=== PATIENT | male | born 1980 | race Hispanic/Latino ===

== ENCOUNTER 2018-05-28 23:40 | Emergency (ER) | payer SELFPAY ==
[2018-05-29 02:27] LABS: Basophils % (Auto) 0.8 % (0.0-1.8); Eosinophils % (Auto) 0.2 % (0.0-4.3); Hematocrit 45.2 % (35.5-45.6); Hemoglobin 15.9 gm/dl (11.8-15.2); Lymphocytes # (Auto) 0.5 K/mm3 (1.2-5.4); Lymphocytes % (Auto) 12.1 % (13.4-35.0); Mean Corpuscular HGB Conc 35 % (32-34); Mean Corpuscular Hemoglobin 33 pg (28-32); Mean Corpuscular Volume 93 fl (84-94); Monocytes # (Auto) 0.7 K/mm3 (0.0-0.8); Monocytes % (Auto) 15.9 % (0.0-7.3); Platelet Count 135 K/mm3 (140-440); Red Blood Count 4.85 M/mm3 (3.65-5.03); Red Cell Distribution Width 14.5 % (13.2-15.2)
[2018-05-29 02:42] LABS: BUN/Creatinine Ratio 21; Blood Urea Nitrogen 17 mg/dL (9-20); Calcium 9.6 mg/dL (8.4-10.2); Hemolysis Index 6
[2018-05-29] MEDS ORDERED: VITAMIN B-1 100 MG, FOLVITE 1 MG, INFUVITE 10 ML, MAGNESIUM SULFATE 2 GM in NACL 0.9% 1... IV ONE (05:15)
[2018-05-29] MEDS ORDERED: ZOFRAN IV ONE (05:15)
--- NOTE | 2018-05-29 05:34 | Emergency Department Report ---
HPI - General Chief Complaint: Psych Time Seen by Provider: 05/29/18 05:08 - [facility] HPI: Anthony 11 The patient is a 38-year-old male presenting with a chief complaint of alcohol abuse. The patient states came to the emergency department seeking detox from alcohol. He states he usually drinks between 10-12 miniature liquors daily. Patient states he last consumed last night. Location: Mental state Duration: [See above] Quality: Alcoholic Severity: Moderately severe Modifying factors: [see above] Context: [see above] Mode of transportation: [not driving] ED Past Medical Hx - Past Medical History Hx Hypertension: Yes Hx Psychiatric Treatment: Yes (Depression) - Surgical History Past Surgical History?: No - Family History Family history: no significant - Social History Smoking Status: Never Smoker Substance Use Type: None (denies illicit drug use), Alcohol (daily) - Medications Home Medications: Home Medications Medication Instructions Recorded Confirmed Last Taken Type QUEtiapine [SEROquel] 25 mg PO DAILY 05/29/18 05/29/18 Unknown History QUEtiapine [SEROquel] 25 mg PO QAM 05/29/18 05/29/18 Unknown History diphenhydrAMINE [Benadryl CAP] 50 mg PO QAM PRN 05/29/18 05/29/18 Unknown History Lisinopril [Zestril] 10 mg PO DAILY #30 tablet 05/31/18 Unknown Rx QUEtiapine [SEROquel] 200 mg PO QHS #30 tablet 05/31/18 Unknown Rx Venlafaxine [Effexor 25mg tab] 25 mg PO BID #60 tablet 05/31/18 Unknown Rx ED Review of Systems ROS: Stated complaint: MH Other details as noted in HPI Constitutional: no symptoms reported Eyes: denies: eye pain ENT: denies: throat pain Respiratory: no symptoms reported Cardiovascular: denies: chest pain Gastrointestinal: nausea, vomiting Genitourinary: denies: dysuria Musculoskeletal: denies: back pain Neurological: denies: headache Physical Exam - Physical Exam Vital Signs: Vital Signs 05/29/18 05/29/18 01:34 04:00 Temperature 98.6 F 98.6 F Pulse Rate 101 H 98 H Respiratory 18 20 Rate Blood Pressure 129/95 Blood Pressure 139/98 [Right] O2 Sat by Pulse 100 97 Oximetry Physical Exam: GENERAL: The patient is well-developed well-nourished male lying on stretcher not appearing to be in acute distress. [] HEENT: Normocephalic. Atraumatic. Extraocular motions are intact. Patient has moist mucous membranes. NECK: Supple. Trachea midline CHEST/LUNGS: Clear to auscultation. There is no respiratory distress noted. HEART/CARDIOVASCULAR: Regular. There is no tachycardia. There is no gallop rub or murmur. ABDOMEN: Abdomen is soft, nontender. Patient has normal bowel sounds. There is no abdominal distention. SKIN: There is no rash. There is no edema. There is no diaphoresis. NEURO: The patient is awake, alert, and oriented. The patient is cooperative. The patient has normal speech MUSCULOSKELETAL: There is no evidence of acute injury. ED Course Vital Signs 05/29/18 05/29/18 01:34 04:00 Temperature 98.6 F 98.6 F Pulse Rate 101 H 98 H Respiratory 18 20 Rate Blood Pressure 129/95 Blood Pressure 139/98 [Right] O2 Sat by Pulse 100 97 Oximetry ED Medical Decision Making - Lab Data Result diagrams: 05/29/18 02:06 05/29/18 02:06 Critical care attestation.: If time is entered above; I have spent that time in minutes in the direct care of this critically ill patient, excluding procedure time. ED Disposition Clinical Impression: Alcohol abuse Disposition: DC-01 TO HOME OR SELFCARE Is pt being admited?: No Does the pt Need Aspirin: No Condition: Stable Instructions: At-Risk Alcohol Use (ED) Prescriptions: Lisinopril [Zestril] 10 mg PO DAILY #30 tablet QUEtiapine [SEROquel] 200 mg PO QHS #30 tablet Venlafaxine [Effexor 25mg tab] 25 mg PO BID #60 tablet Referrals: PRIMARY CARE,MD [Primary Care Provider] - 3-5 Days
[2018-05-29 05:43] LABS: Bilirubin,Direct 0.3 mg/dL (0-0.2)
[2018-05-29] MEDS ORDERED: ATIVAN PO ONE (09:01)
[2018-05-29] MEDS: ZOFRAN IV PRN ×2 (09:01→18:05)
[2018-05-29] MEDS: LIBRIUM PO SCH ×3 (10:04→18:05)
[2018-05-29 22:36] LABS: Bilirubin,Urine NEG (Negative); Blood,Urine SM (Negative); Color,Urine Amber (Yellow); Mucus,Urine 1+ /HPF; WBC,Urine < 1.0 /HPF (0.0-6.0)
[2018-05-29 22:49] LABS: Amphetamine Screen,Urine PRESUMPTIVE NEGATIVE; Cannabinoid Screen,Urine PRESUMPTIVE NEGATIVE; Cocaine Screen,Urine PRESUMPTIVE NEGATIVE; Methadone Screen,Urine PRESUMPTIVE NEGATIVE; Opiate Screen,Urine PRESUMPTIVE NEGATIVE
[2018-05-29 23:02] LABS: Benzodiazepines Screen,Urine PRESUMPTIVE POSITIVE
[2018-05-30] MEDS: LIBRIUM PO SCH ×4 (00:10→18:20)
[2018-05-30] MEDS: ZOFRAN IV PRN ×2 (02:37→16:30)
[2018-05-30] MEDS ORDERED: ATIVAN IV ONE (04:29)
[2018-05-30] MEDS ORDERED: ATIVAN ONE (04:33)
[2018-05-30] MEDS ORDERED: ZESTRIL PO SCH (11:00)
[2018-05-30] MEDS: EFFEXOR PO SCH ×2 (12:30→22:13)
--- NOTE | 2018-05-30 13:20 | Consultation ---
History of Present Illness - Reason for Consult Consult date: 05/30/18 Reason for consult: Initial Psychiatric Emergency - Chief Complaint Chief complaint: " Drinking" - History of Present Psychiatric Illness Patient is a 38-year-old white male who presents to the emergency room with a chief complaint of alcohol abuse. The patient states he came to the emergency department seeking detox from alcohol. Patient has a past psychiatric history of major depressive disorder (2016) generalized anxiety disorder (2016). Today patient presents cooperative but anxious on the assessment. Patient states, "I want to stop drinking so I came here to minimize mild withdrawal symptoms." Patient verbalizes that he drinks 610 drinks of vodka daily. His last drink was Monday, [id number]. Patient reports that he began to drink excessively when he became noncompliant with his medication. Patient last took Seroquel and Effexor which were effected. Currently, he denies SI/HI's, A/VH's, and delusions. Withdrawal symptoms including: anxiety, irritability, and cold sweats. Current psychiatric medication: Seroquel 25 mg by mouth every morning, 12 noon, and 200 mg by mouth daily at bedtime. Effexor XR 75 mg by mouth every morning. Past psychiatric history: MDD (2016), TREV (2016); 2 previous inpatient psychiatric hospitalizations ([facility] - )- detox; outpatient psychiatrist-unknown. [facility]; no previous suicide attempts. Past psychiatric medication trials: " I can't remember." History of trauma/abuse: Patient denies sexual, physical, and mental abuse. Drugs/alcohol abuse history: Alcohol-amount and frequency 6-8 drinks of vodka daily, duration-throughout the day, last use-05/26/2018, first use-high school.Patient denies drug abuse. UDS positive for benzodiazepines. Social history: High school diploma-highest level of education; employed [employer]; 2 children (ages 5 and 8); good support system-family and friends ; [facility]. Family history: Patient denies family history of psychiatric illness and substance abuse. Medications and Allergies Allergies Allergy/AdvReac Type Severity Reaction Status Date / Time No Known Allergies Allergy Verified 03/29/15 20:48 Home Medications Medication Instructions Recorded Confirmed Last Taken Type QUEtiapine [SEROquel] 25 mg PO DAILY 05/29/18 05/29/18 Unknown History QUEtiapine [SEROquel] 25 mg PO QAM 05/29/18 05/29/18 Unknown History QUEtiapine [SEROquel] 200 mg PO QHS 05/29/18 05/29/18 Unknown History Venlafaxine [Effexor 25mg tab] 25 mg PO BID 05/29/18 05/29/18 Unknown History diphenhydrAMINE [Benadryl CAP] 50 mg PO QAM PRN 05/29/18 05/29/18 Unknown History Lisinopril [Zestril] 10 mg PO DAILY 05/30/18 05/30/18 Unknown History Active Meds: Active Medications Chlordiazepoxide HCl (Librium) 25 mg PO Q6HR [facility] Last Admin: 05/30/18 12:30 Dose: 25 mg Lisinopril (Zestril) 10 mg PO DAILY [facility] Last Admin: 05/30/18 12:30 Dose: 10 mg Ondansetron HCl (Zofran) 8 mg IV Q8H PRN PRN Reason: Nausea Last Admin: 05/30/18 02:37 Dose: 8 mg Quetiapine Fumarate (Seroquel) 25 mg PO DAILY [facility] Last Admin: 05/30/18 12:30 Dose: 25 mg Quetiapine Fumarate (Seroquel) 200 mg PO QHS [facility] Venlafaxine HCl (Effexor) 25 mg PO BID [facility] Last Admin: 05/30/18 12:30 Dose: 25 mg Mental Status Exam - Vital signs Last Vital Signs Temp 99.2 F 05/30/18 10:00 Pulse 112 H 05/30/18 12:30 Resp 20 05/30/18 10:00 BP 148/110 05/30/18 12:30 Pulse Ox 98 05/30/18 10:00 - Exam Narrative exam: Mental Status Exam General Appearance: Casually Dressed-hospital gown Eye Contact: Intermittent Orientation: Alert and oriented x 4 ( person, place, time, date, and situation) Attitude/Behavior: Cooperative Sensorium: Distracted Psychomotor & Musculoskeletal Activity: Laying in bed Mood: " Okay." Affect: Constricted Speech/Language: Slow and delayed at times Thought Processes: Circumstantial Thought Content: Reality oriented; Patient denies delusions. Perception: Patient denies A/V/T hallucinations Concentration/Attention: Impaired Suicidal Ideations/Plan: Patient denies Homicidal Ideations/Plan: Patient denies Judgment: Variable Insight: Fair Results Result Diagrams: 05/29/18 02:06 05/29/18 02:06 All other labs normal. Assessment and Plan Assessment and plan: Impression: PPHx MDD and TREV. Alcohol Use Disorder, severe. Today patient presents cooperative but anxious during the assessment. Patient denies SI/HI's, A/VH's, and delusions. Withdrawal symptoms including: anxiety, irritability, and cold sweats. UDS positive for benzodiazepines. Recommendation/Plan: 1. Reassess in 24 hours to determine proper disposition. 2. Restart/continue Seroquel 25mg po QAM, 12pm, and 200mg po QHS; Effexor XR 75mg po QAM; Discussed metabolic side effects of Seroquel and Effexor as well as possible increase in suicidality. Patient verbalizes understanding. 3. Place on [facility] protocol for alcohol/benzodiazepines withdrawal. 4. Monitor mood, sleep, appetite, compliance, withdrawal symptoms, and possible side effects.
[2018-05-31] MEDS: LIBRIUM PO SCH ×2 (00:30→06:32)
--- NOTE | 2018-05-31 09:16 | Emergency Department Report ---
Blank Doc - Documentation Documentation: Patient is a 38-year-old gentleman who is here for help with detox from alcohol. Patient's last drink was approximate 5 days ago. Patient states he is feeling much improved and the like to go home. The patient has had no issues with hallucinations or tremors. Patient was seen by psych and it is determined that patient should remain on Seroquel and Effexor for his depression. Patient follow-up with Alcohol[facility].
[2018-05-31 10:00] VITALS: BP 118/83
--- NOTE | 2018-05-31 11:01 | Progress Note ---
Subjective - Reason for Consult Consult date: 05/31/18 Reason for consult: Psychiatry Follow-up - Chief Complaint Chief complaint: "I will stop drinking" 38-year-old white male who presents to the ER for ETOH. Today the patient is calm and cooperative during the assessment. He stated that his psychiatrist has moved and it's difficult to get her new location. He stated that he would like a referral for outpatient psy/rehab services. He stated that he will stop drinking (etoh) and get his life together. He denies SI/HI's and AVH's. He denies any side effects of his medications. Mental Status Exam - Vital signs Last Vital Signs Temp 98 F 05/31/18 09:15 Pulse 126 H 05/31/18 09:15 Resp 18 05/31/18 09:15 BP 118/83 05/31/18 09:15 Pulse Ox 100 05/31/18 09:15 - Exam Narrative exam: MSE: Appearance: calm, cooperative Behavior: regular eye contact Speech: regular rate and tone Mood: "okay" Affect: congruent to mood Thought Process: linera Thought Content: denies SI/HI's and VH's Motor Activity: ambulatory Cognition: A/O x 3 Insight: appropriate Judgment: appropriate Assessment and Plan Impression: Hx of Depression/TREV. Alcohol Use DO. Today the patient is calm and cooperative during the assessment. No acute withdrawals noted (etoh). Recommendation/Plan: Continue home medications Seroquel 25 mg PO QAM/12pm, and 200 mg PO HS, and Effexor XR 75 mg PO QAM. Discussed possible metabolic side effects of Seroquel with the patient. Discussed possible suicidality/medication induced viv with the patient reference Effexor. The patient can follow up with the [facility] for outpatient psy/rehab services.
== END 2018-05-31 10:04 | disposition home or self-care (01) ==
LOC: ED 23:40 → EEVIPCON 23:40 → ED 05-31 10:04
DX: F10.10 Alcohol abuse, uncomplicated (principal); F32.9 Major depressive disorder, single episode, unspecified; I10 Essential (primary) hypertension
CPT/HCPCS: 36415; 80048; 80074; 80307; 81001; 85025; 96365; 96366; 96375; 96376; 99284; G0480; J2060; J2405; J3411; J3475; J7030; 80320

== ENCOUNTER 2020-06-22 20:30 | Inpatient (IN) | payer OTHER ==
--- NOTE | 2020-06-22 21:12 | Event Note ---
ED Screening Note Date of service: 06/22/20 Time: 21:08 ED Screening Note: Pt c/o low back pain and bilateral leg pain and weakness after falling off a roof 4 days ago states decreased sensation in saddle region +ttp of coccyx area of back EMS reports pt was picked up from an intervention for his alcohol abuse Pt does appear intoxicated This initial assessment/diagnostic orders/clinical plan/treatment(s) is/are subject to change based on patients health status, clinical progression and re- assessment by fellow clinical providers in the ED. Further treatment and workup at subsequent clinical providers discretion. Patient/guardian urged not to elope from the ED as their condition may be serious if not clinically assessed and managed. Initial orders include: CT lumbar
--- NOTE | 2020-06-22 21:56 | Cat Scan Report ---
CT LUMBAR SPINE WITHOUT CONTRAST HISTORY: Fell down 12 feet; sagittal paresthesia COMPARISON: None TECHNIQUE: CT images of the lumbar spine were obtained without contrast. Sagittal and coronal reform ats were post-processed.All CT scans at this location are performed using CT dose reduction for ALARA by means of automated exposure control. CONTRAST: None. FINDINGS: Alignment: Normal. No traumatic subluxation. Vertebrae:No significant abnormality. No fracture. Disc Spaces: No disc herniation; bulging disc at L3-L4 disc level Facet Joints:No significant abnormality. Additional Findings: None IMPRESSION: 1. No significant abnormality. Signer Name: Tony Elliott MD Signed: 06/22/2020 9:52 PM Workstation Name: [id number]
[2020-06-22 21:58] LABS: Mean Corpuscular HGB Conc 37 % (32-34); Mean Corpuscular Volume 108 fl (84-94); Platelet Count 395 K/mm3 (140-440); Red Blood Count 3.17 M/mm3 (3.65-5.03); Red Cell Distribution Width 18.2 % (13.2-15.2)
[2020-06-22 22:01] LABS: Hematocrit 34.3 % (35.5-45.6); Hemoglobin 12.7 gm/dl (11.8-15.2)
[2020-06-22 22:14] LABS: Blood Urea Nitrogen 7 mg/dL (9-20); Calcium 8.7 mg/dL (8.4-10.2); Hemolysis Index 10
[2020-06-22 22:22] LABS: BUN/Creatinine Ratio 10
[2020-06-22] MEDS ORDERED: POTASSIUM CHLORIDE ER 20 MEQ TAB PO ONE (22:23)
[2020-06-22] MEDS ORDERED: MULTIVITAMINS ,THERAPEUTIC TAB PO ONE (22:33)
[2020-06-22] MEDS ORDERED: SODIUM CHLORIDE 0.9% 1000 ML 1,000 ML IV ONE (22:33)
[2020-06-22 22:58] LABS: Anisocytosis RARE; Total Cells Counted 100
[2020-06-22] MEDS ORDERED: THIAMINE 100 MG in SODIUM CHLORIDE 0.9% 50 ML IV ONE (23:00)
--- NOTE | 2020-06-22 23:20 | Emergency Department Report ---
HPI - General Chief Complaint: Extremity Injury, Lower Time Seen by Provider: 06/22/20 21:06 - HPI HPI: This is a 40-year-old male who presents to the emergency department with a complaint of alcohol intoxication, as well as generalized body aches and pains. The patient has had multiple falls over the past 4 days. The initial fall, which happened outside of his home, a ground-level fall, apparently caused him to have significant pain to the bilateral lower extremities. Because of that, the patient says that he has had some other falls. He does present with some bruises and abrasions throughout his body. At the time of my examination, most of the patient's labs have already come back that were ordered through triage, and his blood alcohol level is 0.49. Patient does admit to drinking heavily today and over the past 4 days. He denies any other past medical history. He has not taken anything for symptoms prior to presentation. He denies any numbness or paresthesias, problems with bowel or bladder, or any neurological deficits. The pain increases with any type of movement, bearing weight, or ambulation. He denies hitting his head or any loss of consciousness. ED Past Medical Hx - Past Medical History Previous Medical History?: Yes Hx Hypertension: Yes Hx Psychiatric Treatment: Yes (Depression) - Social History Smoking Status: Never Smoker Substance Use Type: Alcohol - Medications Home Medications: Home Medications Medication Instructions Recorded Confirmed Last Taken Type QUEtiapine [SEROquel] 25 mg PO DAILY 05/29/18 05/29/18 Unknown History QUEtiapine [SEROquel] 25 mg PO QAM 05/29/18 05/29/18 Unknown History diphenhydrAMINE [Benadryl CAP] 50 mg PO QAM PRN 05/29/18 05/29/18 Unknown History Lisinopril [Zestril] 10 mg PO DAILY #30 tablet 05/31/18 Unknown Rx QUEtiapine [SEROquel] 200 mg PO QHS #30 tablet 05/31/18 Unknown Rx Venlafaxine [Effexor 25mg tab] 25 mg PO BID #60 tablet 05/31/18 Unknown Rx ED Review of Systems ROS: Stated complaint: BILATERAL LEG PAIN Other details as noted in HPI Comment: All other systems reviewed and negative Constitutional: denies: chills, fever Eyes: denies: eye pain, vision change ENT: denies: ear pain, throat pain Respiratory: denies: cough, shortness of breath Cardiovascular: denies: chest pain, palpitations Gastrointestinal: denies: abdominal pain, vomiting Genitourinary: denies: dysuria, discharge Musculoskeletal: arthralgia, myalgia. denies: joint swelling Skin: denies: rash, lesions Neurological: denies: headache, numbness, paresthesias Physical Exam - Physical Exam Vital Signs: Vital Signs 06/22/20 21:10 Temperature 98.8 F Pulse Rate 127 H Respiratory 18 Rate Blood Pressure 122/89 O2 Sat by Pulse 100 Oximetry Physical Exam: GENERAL: The patient is well-developed well-nourished. HENT: Normocephalic. Atraumatic. Patient has moist mucous membranes. EYES: Extraocular motions are intact. No nystagmus. NECK: Supple. Trachea is midline. CHEST/LUNGS: Clear to auscultation. There is no respiratory distress noted. HEART/CARDIOVASCULAR: Regular. There is moderate tachycardia. There is no murmur. ABDOMEN: Abdomen is soft, nontender. Patient has normal bowel sounds. There is no abdominal distention. SKIN: Skin is warm and dry. NEURO: The patient is awake, alert, and oriented but appears intoxicated.. The patient is cooperative. Cranial nerves II through XII grossly intact. Normal speech. MUSCULOSKELETAL: There is tenderness to palpation along the bilateral lower extremities from the hips to the knees. There is no limitation range of motion. ED Course Vital Signs 06/22/20 21:10 Temperature 98.8 F Pulse Rate 127 H Respiratory 18 Rate Blood Pressure 122/89 O2 Sat by Pulse 100 Oximetry - Reevaluation(s) Reevaluation #1: 06/23/20 03:43 Lab Results 06/22/20 06/22/20 06/22/20 Range/Units 21:40 21:40 21:40 WBC (4.5-11.0) K/mm3 RBC (3.65-5.03) M/mm3 Hgb (11.8-15.2) gm/dl Hct (35.5-45.6) % MCV (84-94) fl MCH (28-32) pg MCHC (32-34) % RDW (13.2-15.2) % Plt Count (140-440) K/mm3 [place] % (Auto) Add Manual Diff Total Counted Seg Neuts % (Manual) (40.0-70.0) % Band Neutrophils % % Lymphocytes % (Manual) (13.4-35.0) % Reactive Lymphs % (Man) % Monocytes % (Manual) (0.0-7.3) % Eosinophils % (Manual) (0.0-4.3) % Basophils % (Manual) (0.0-1.8) % Metamyelocytes % % Myelocytes % % Promyelocytes % % Blast Cells % % Nucleated RBC % Seg Neutrophils # Man (1.8-7.7) K/mm3 Band Neutrophils # K/mm3 Lymphocytes # (Manual) (1.2-5.4) K/mm3 Abs React Lymphs (Man) K/mm3 Monocytes # (Manual) (0.0-0.8) K/mm3 Eosinophils # (Manual) (0.0-0.4) K/mm3 Basophils # (Manual) (0.0-0.1) K/mm3 Metamyelocytes # K/mm3 Myelocytes # K/mm3 Promyelocytes # K/mm3 Blast Cells # K/mm3 WBC Morphology Hypersegmented Neuts Hyposegmented Neuts Hypogranular Neuts Smudge Cells Toxic Granulation Toxic Vacuolation Dohle Bodies Pelger-Huet Anomaly Cheyanne Rods Platelet Estimate Clumped Platelets Plt Clumps, EDTA Large Platelets Giant Platelets Platelet Satelliting Plt Morphology Comment RBC Morphology Dimorphic RBCs Polychromasia Hypochromasia Poikilocytosis Anisocytosis Microcytosis Macrocytosis Spherocytes Pappenheimer Bodies Sickle Cells Target Cells Tear Drop Cells Ovalocytes Helmet Cells [place] Bodies [place] Rings [place] Cells Bite Cells Crenated Cell Elliptocytes Acanthocytes (Spur) Rouleaux Hemoglobin C Crystals Schistocytes Malaria parasites Saad Bodies Hem Pathologist Commnt Sodium 142 (137-145) mmol/L Potassium 3.1 L (3.6-5.0) mmol/L Chloride 98.5 (98-107) mmol/L Carbon Dioxide 23 (22-30) mmol/L Anion Gap 24 mmol/L BUN 7 L (9-20) mg/dL Creatinine 0.7 L (0.8-1.3) mg/dL Estimated GFR > 60 ml/min BUN/Creatinine Ratio 10 % Glucose 95 (75-100) mg/dL Calcium 8.7 (8.4-10.2) mg/dL Total Bilirubin (0.1-1.2) mg/dL Direct Bilirubin (0-0.2) mg/dL Indirect Bilirubin mg/dL AST (5-40) units/L ALT (7-56) units/L Alkaline Phosphatase (35-129) units/L Total Creatine Kinase (55-170) units/L Total Protein (6.3-8.2) g/dL Albumin (3.9-5) g/dL Albumin/Globulin Ratio % Urine Color (Yellow) Urine Turbidity (Clear) Urine pH (5.0-7.0) Ur Specific [place] (1.003-1.030) Urine Protein (Negative) mg/dL Urine Glucose (UA) (Negative) mg/dL Urine Ketones (Negative) mg/dL Urine Blood (Negative) Urine Nitrite (Negative) Urine Bilirubin (Negative) Urine Urobilinogen (<2.0) mg/dL Ur Leukocyte Esterase (Negative) Urine WBC (Auto) (0.0-6.0) /HPF Urine RBC (Auto) (0.0-6.0) /HPF Hyaline Casts /LPF Urine Mucus /HPF Salicylates < 0.3 L (2.8-20.0) mg/dL Urine Opiates Screen Urine Methadone Screen Acetaminophen 5.0 L (10.0-30.0) ug/mL Ur Barbiturates Screen Ur Phencyclidine Scrn Ur Amphetamines Screen U Benzodiazepines Scrn Urine Cocaine Screen U Marijuana (THC) Screen Drugs of Abuse Note Plasma/Serum Alcohol (0-0.07) % 06/22/20 06/22/20 06/22/20 Range/Units 21:40 21:40 21:40 WBC 6.0 (4.5-11.0) K/mm3 RBC 3.17 L (3.65-5.03) M/mm3 Hgb 12.7 (11.8-15.2) gm/dl Hct 34.3 L (35.5-45.6) % MCV 108 H (84-94) fl MCH 40 H (28-32) pg MCHC 37 H (32-34) % RDW 18.2 H (13.2-15.2) % Plt Count 395 (140-440) K/mm3 [place] % (Auto) Bot[employer] Technician Add Manual Diff Complete Total Counted 100 Seg Neuts % (Manual) 53.0 (40.0-70.0) % Band Neutrophils % 0 % Lymphocytes % (Manual) 25.0 (13.4-35.0) % Reactive Lymphs % (Man) 0 % Monocytes % (Manual) 20.0 H (0.0-7.3) % Eosinophils % (Manual) 1.0 (0.0-4.3) % Basophils % (Manual) 1.0 (0.0-1.8) % Metamyelocytes % 0 % Myelocytes % 0 % Promyelocytes % 0 % Blast Cells % 0 % Nucleated RBC % Not Reportable Seg Neutrophils # Man 3.2 (1.8-7.7) K/mm3 Band Neutrophils # 0.0 K/mm3 Lymphocytes # (Manual) 1.5 (1.2-5.4) K/mm3 Abs React Lymphs (Man) 0.0 K/mm3 Monocytes # (Manual) 1.2 H (0.0-0.8) K/mm3 Eosinophils # (Manual) 0.1 (0.0-0.4) K/mm3 Basophils # (Manual) 0.1 (0.0-0.1) K/mm3 Metamyelocytes # 0.0 K/mm3 Myelocytes # 0.0 K/mm3 Promyelocytes # 0.0 K/mm3 Blast Cells # 0.0 K/mm3 WBC Morphology Not Reportable Hypersegmented Neuts Not Reportable Hyposegmented Neuts Not Reportable Hypogranular Neuts Not Reportable Smudge Cells Not Reportable Toxic Granulation Not Reportable Toxic Vacuolation Not Reportable Dohle Bodies Not Reportable Pelger-Huet Anomaly Not Reportable Cheyanne Rods Not Reportable Platelet Estimate Not Reportable Clumped Platelets Not Reportable Plt Clumps, EDTA Not Reportable Large Platelets Not Reportable Giant Platelets Not Reportable Platelet Satelliting Not Reportable Plt Morphology Comment Not Reportable RBC Morphology Not Reportable Dimorphic RBCs Not Reportable Polychromasia Not Reportable Hypochromasia Not Reportable Poikilocytosis Not Reportable Anisocytosis Rare Microcytosis Rare Macrocytosis Not Reportable Spherocytes Not Reportable Pappenheimer Bodies Not Reportable Sickle Cells Not Reportable Target Cells Not Reportable Tear Drop Cells Not Reportable Ovalocytes Not Reportable Helmet Cells Not Reportable [place] Bodies Not Reportable [place] Rings Not Reportable [place] Cells Not Reportable Bite Cells Not Reportable Crenated Cell Not Reportable Elliptocytes Not Reportable Acanthocytes (Spur) Not Reportable Rouleaux Not Reportable Hemoglobin C Crystals Not Reportable Schistocytes Not Reportable Malaria parasites Not Reportable Saad Bodies Not Reportable Hem Pathologist Commnt No Sodium (137-145) mmol/L Potassium (3.6-5.0) mmol/L Chloride (98-107) mmol/L Carbon Dioxide (22-30) mmol/L Anion Gap mmol/L BUN (9-20) mg/dL Creatinine (0.8-1.3) mg/dL Estimated GFR ml/min BUN/Creatinine Ratio % Glucose (75-100) mg/dL Calcium (8.4-10.2) mg/dL Total Bilirubin 0.60 (0.1-1.2) mg/dL Direct Bilirubin 0.3 H (0-0.2) mg/dL Indirect Bilirubin 0.3 mg/dL AST 185 H (5-40) units/L ALT 139 H (7-56) units/L Alkaline Phosphatase 99 (35-129) units/L Total Creatine Kinase 1077 H (55-170) units/L Total Protein 7.5 (6.3-8.2) g/dL Albumin 4.1 (3.9-5) g/dL Albumin/Globulin Ratio 1.2 % Urine Color (Yellow) Urine Turbidity (Clear) Urine pH (5.0-7.0) Ur Specific [place] (1.003-1.030) Urine Protein (Negative) mg/dL Urine Glucose (UA) (Negative) mg/dL Urine Ketones (Negative) mg/dL Urine Blood (Negative) Urine Nitrite (Negative) Urine Bilirubin (Negative) Urine Urobilinogen (<2.0) mg/dL Ur Leukocyte Esterase (Negative) Urine WBC (Auto) (0.0-6.0) /HPF Urine RBC (Auto) (0.0-6.0) /HPF Hyaline Casts /LPF Urine Mucus /HPF Salicylates (2.8-20.0) mg/dL Urine Opiates Screen Urine Methadone Screen Acetaminophen (10.0-30.0) ug/mL Ur Barbiturates Screen Ur Phencyclidine Scrn Ur Amphetamines Screen U Benzodiazepines Scrn Urine Cocaine Screen U Marijuana (THC) Screen Drugs of Abuse Note Plasma/Serum Alcohol 0.49 H (0-0.07) % 06/23/20 06/23/20 Range/Units 00:58 00:58 WBC (4.5-11.0) K/mm3 RBC (3.65-5.03) M/mm3 Hgb (11.8-15.2) gm/dl Hct (35.5-45.6) % MCV (84-94) fl MCH (28-32) pg MCHC (32-34) % RDW (13.2-15.2) % Plt Count (140-440) K/mm3 [place] % (Auto) Add Manual Diff Total Counted Seg Neuts % (Manual) (40.0-70.0) % Band Neutrophils % % Lymphocytes % (Manual) (13.4-35.0) % Reactive Lymphs % (Man) % Monocytes % (Manual) (0.0-7.3) % Eosinophils % (Manual) (0.0-4.3) % Basophils % (Manual) (0.0-1.8) % Metamyelocytes % % Myelocytes % % Promyelocytes % % Blast Cells % % Nucleated RBC % Seg Neutrophils # Man (1.8-7.7) K/mm3 Band Neutrophils # K/mm3 Lymphocytes # (Manual) (1.2-5.4) K/mm3 Abs React Lymphs (Man) K/mm3 Monocytes # (Manual) (0.0-0.8) K/mm3 Eosinophils # (Manual) (0.0-0.4) K/mm3 Basophils # (Manual) (0.0-0.1) K/mm3 Metamyelocytes # K/mm3 Myelocytes # K/mm3 Promyelocytes # K/mm3 Blast Cells # K/mm3 WBC Morphology Hypersegmented Neuts Hyposegmented Neuts Hypogranular Neuts Smudge Cells Toxic Granulation Toxic Vacuolation Dohle Bodies Pelger-Huet Anomaly [place]ne Rods Platelet Estimate Clumped Platelets Plt Clumps, EDTA Large Platelets Giant Platelets Platelet Satelliting Plt Morphology Comment RBC Morphology Dimorphic RBCs Polychromasia Hypochromasia Poikilocytosis Anisocytosis Microcytosis Macrocytosis Spherocytes Pappenheimer Bodies Sickle Cells Target Cells Tear Drop Cells Ovalocytes Helmet Cells [place] Bodies [place] Rings [place] Cells Bite Cells Crenated Cell Elliptocytes Acanthocytes (Spur) Rouleaux Hemoglobin C Crystals Schistocytes Malaria parasites Saad Bodies Hem Pathologist Commnt Sodium (137-145) mmol/L Potassium (3.6-5.0) mmol/L Chloride (98-107) mmol/L Carbon Dioxide (22-30) mmol/L Anion Gap mmol/L BUN (9-20) mg/dL Creatinine (0.8-1.3) mg/dL Estimated GFR ml/min BUN/Creatinine Ratio % Glucose (75-100) mg/dL Calcium (8.4-10.2) mg/dL Total Bilirubin (0.1-1.2) mg/dL Direct Bilirubin (0-0.2) mg/dL Indirect Bilirubin mg/dL AST (5-40) units/L ALT (7-56) units/L Alkaline Phosphatase (35-129) units/L Total Creatine Kinase (55-170) units/L Total Protein (6.3-8.2) g/dL Albumin (3.9-5) g/dL Albumin/Globulin Ratio % Urine Color Yellow (Yellow) Urine Turbidity Clear (Clear) Urine pH 6.0 (5.0-7.0) Ur Specific [place] 1.011 (1.003-1.030) Urine Protein <15 mg/dl (Negative) mg/dL Urine Glucose (UA) Neg (Negative) mg/dL Urine Ketones Neg (Negative) mg/dL Urine Blood Neg (Negative) Urine Nitrite Neg (Negative) Urine Bilirubin Neg (Negative) Urine Urobilinogen < 2.0 (<2.0) mg/dL Ur Leukocyte Esterase Neg (Negative) Urine WBC (Auto) 2.0 (0.0-6.0) /HPF Urine RBC (Auto) 3.0 (0.0-6.0) /HPF Hyaline Casts 10 /LPF Urine Mucus Few /HPF Salicylates (2.8-20.0) mg/dL Urine Opiates Screen Presumptive negative Urine Methadone Screen Presumptive negative Acetaminophen (10.0-30.0) ug/mL Ur Barbiturates Screen Presumptive negative Ur Phencyclidine Scrn Presumptive negative Ur Amphetamines Screen Presumptive negative U Benzodiazepines Scrn Presumptive negative Urine Cocaine Screen Presumptive negative U Marijuana (THC) Screen Presumptive negative Drugs of Abuse Note Disclamer Plasma/Serum Alcohol (0-0.07) % ED Medical Decision Making - Lab Data Result diagrams: 06/22/20 21:40 06/22/20 21:40 - Radiology Data Radiology results: report reviewed, image reviewed interpreted by me: X-ray of the pelvis and bilateral femurs does not show any fracture, dislocation, or any acute process. CT LUMBAR SPINE WITHOUT CONTRAST HISTORY: Fell down 12 feet; sagittal paresthesia COMPARISON: None TECHNIQUE: CT images of the lumbar spine were obtained without contrast. Sagittal and coronal reformats were post- processed.All CT scans at this location are performed using CT dose reduction for ALARA by means of automated exposure control. CONTRAST: None. FINDINGS: Alignment: Normal. No traumatic subluxation. Vertebrae:No significant abnormality. No fracture. Disc Spaces: No disc herniation; bulging disc at L3-L4 disc level Facet Joints:No significant abnormality. Additional Findings: None IMPRESSION: 1. No significant abnormality. CT HEAD WITHOUT CONTRAST INDICATION: Patient complains of recurrent falls, weakness, E.T.O.H. on board TECHNIQUE: Axial slices were obtained through the head. Coronal and sagittal reformatted images were obtained. COMPARISON: None available. FINDINGS: There is no intracranial hemorrhage or extra-axial fluid collection. Ventricles, basilar cisterns, and sulci appear within normal limits for age. There is no mass lesion or midline shift. No acute territorial infarct is identified. Bone windows demonstrate no acute osseous abnormality. Paranasal sinuses and mastoid air cells appear clear. TECHNIQUE: All CT scans at this facility use dose modulation, iterative reconstruction, automated exposure control, weight based dosing, when appropriate, to reduce radiation dose to as low as reasonably achievable. IMPRESSION: 1. No acute intracranial abnormality. - Medical Decision Making This patient presents to the emergency department with multiple recurrent falls over the past 4 days and acute alcohol intoxication/abuse. The patient's blood alcohol level is 0.49 which is well above the level considered "toxic" and is about 5 times the legal limit. Over the past 4 days the patient has had multiple falls. It is unknown whether this is secondary to his alcohol intoxication/abuse, which has also been going on for the past few days. Patient says that he has been using his grandfathers walker secondary to difficulty with ambulation and bearing weight secondary to his leg pains. The patient has been given IV fluid resuscitation, multivitamin, thiamine. He will be admitted to the hospital for further evaluation and potentially some physical therapy. He was accepted for admission by the hospitalist, Dr. Sweeney. Critical Care Time: No Critical care attestation.: If time is entered above; I have spent that time in minutes in the direct care of this critically ill patient, excluding procedure time. ED Disposition Clinical Impression: Recurrent falls, Alcohol abuse, Difficulty walking Alcohol intoxication Qualifiers: Complication of substance-induced condition: with unspecified complication Qualified Code(s): F10.929 - Alcohol use, unspecified with intoxication, unspecified Disposition: DC-09 OP ADMIT IP TO THIS HOSP Is pt being admited?: Yes Condition: Fair Time of Disposition: 01:46
--- NOTE | 2020-06-22 23:21 | XRay Report ---
PELVIS ONE VIEW INDICATION / CLINICAL INFORMATION: fall, pelvic pain COMPARISON: None available. FINDINGS: BONES / JOINT(S): No acute fracture or subluxation. No significant arthritis. SOFT TISSUES: No significant abnormality. ADDITIONAL FINDINGS: None. Signer Name: Dexter Mejia MD Signed: 06/22/2020 11:16 PM Workstation Name: [id number]
--- NOTE | 2020-06-22 23:22 | XRay Report ---
BILATERAL FEMUR RADIOGRAPHS 2 VIEWS INDICATION / CLINICAL INFORMATION: fall, leg pain COMPARISON: None available. FINDINGS: BONES / JOINT(S): No acute fracture or subluxation. No significant arthritis. SOFT TISSUES: No significant abnormality. ADDITIONAL FINDINGS: None. Signer Name: Dexter Mejia MD Signed: 06/22/2020 11:17 PM Workstation Name: [id number]
[2020-06-22 23:55] LABS: Albumin 4.1 g/dL (3.9-5); Bilirubin,Direct 0.3 mg/dL (0-0.2)
[2020-06-23 01:20] LABS: Bilirubin,Urine NEG (Negative); Blood,Urine NEG (Negative); Color,Urine Yellow (Yellow); Hyaline Casts,Urine 10 /LPF; Mucus,Urine FEW /HPF; Protein,Urine <15 mg/dL mg/dL (Negative); Urobilinogen,Urine < 2.0 mg/dL (<2.0)
[2020-06-23 01:28] LABS: Amphetamine Screen,Urine PRESUMPTIVE NEGATIVE; Benzodiazepines Screen,Urine PRESUMPTIVE NEGATIVE; Cannabinoid Screen,Urine PRESUMPTIVE NEGATIVE; Cocaine Screen,Urine PRESUMPTIVE NEGATIVE; Methadone Screen,Urine PRESUMPTIVE NEGATIVE; Opiate Screen,Urine PRESUMPTIVE NEGATIVE
--- NOTE | 2020-06-23 02:56 | Cat Scan Report ---
CT HEAD WITHOUT CONTRAST INDICATION: Patient complains of recurrent falls, weakness, E.T.O.H. on board TECHNIQUE: Axial slices were obtained through the head. Coronal and sagittal reformatted images were obtained. COMPARISON: None available. FINDINGS: There is no intracranial hemorrhage or extra-axial fluid collection. Ventricles, basilar cisterns, an d sulci appear within normal limits for age. There is no mass lesion or midline shift. No acute brandi torial infarct is identified. Bone windows demonstrate no acute osseous abnormality. Paranasal sinuses and mastoid air cells appear clear. TECHNIQUE: All CT scans at this facility use dose modulation, iterative reconstruction, automated ex posure control, weight based dosing, when appropriate, to reduce radiation dose to as low as reasonab ly achievable. IMPRESSION: 1. No acute intracranial abnormality. Signer Name: Dexter Mejia MD Signed: 06/23/2020 2:51 AM Workstation Name: [id number]
[2020-06-23] MEDS ORDERED: SODIUM BICARBONATE 150 MEQ in DEXTROSE 5% IN WATER 1,000 ML IV SCH (04:00)
[2020-06-23] MEDS: HEPARIN 5,000 UNIT/1 ML VIAL SUB-Q SCH ×3 (04:08→23:42)
--- NOTE | 2020-06-23 04:10 | History and Physical Report ---
History of Present Illness Date of examination: 06/23/20 Date of admission: 06/23/20 01:46 Chief complaint: Frequent fall and Lower limb falls History of present illness: Patient is a 40 year old male presenting to Emergency room because of frequent falls and pain and weakness of both lower limbs. patient said that he has fallen a lot in the last 4 days and agreed that he has been drinking lots of alcohol with shaking sensation. Past History Past Medical History: hypertension, other (DEPRESSION) Medications and Allergies Allergies Allergy/AdvReac Type Severity Reaction Status Date / Time No Known Allergies Allergy Verified 03/29/15 20:48 Home Medications Medication Instructions Recorded Confirmed Last Taken Type QUEtiapine [SEROquel] 25 mg PO DAILY 05/29/18 05/29/18 Unknown History QUEtiapine [SEROquel] 25 mg PO QAM 05/29/18 05/29/18 Unknown History diphenhydrAMINE [Benadryl CAP] 50 mg PO QAM PRN 05/29/18 05/29/18 Unknown History Lisinopril [Zestril] 10 mg PO DAILY #30 tablet 05/31/18 Unknown Rx QUEtiapine [SEROquel] 200 mg PO QHS #30 tablet 05/31/18 Unknown Rx Venlafaxine [Effexor 25mg tab] 25 mg PO BID #60 tablet 05/31/18 Unknown Rx Active Meds: Active Medications Heparin Sodium (Porcine) (Heparin) 5,000 unit SUB-Q Q12HR MARVA Sodium Bicarbonate 150 meq/ (Dextrose) 1,150 mls @ 75 mls/hr IV DIRECT MARVA Stop: 06/23/20 19:19 Thiamine HCl 100 mg/ Folic Acid 1 mg/ Multivitamins/Minerals 10 ml/ Sodium Chloride 1,011.2 mls @ 250 mls/hr IV ONCE ONE Stop: 06/24/20 02:02 Review of Systems Constitutional: weakness Eyes: bilateral: other (NO BILATERAL EYE SYMPTOMS) Ears, nose, mouth and throat: no headache, no vertigo Cardiovascular: no chest pain, no palpitations, no rapid/irregular heart beat, no syncope, no lightheadedness, no shortness of breath Respiratory: no cough, no shortness of breath, no congestion Gastrointestinal: no abdominal pain, no nausea, no vomiting, no diarrhea, no constipation, no change in bowel habits, no hematochezia Genitourinary Male: no dysuria, no hematuria, no flank pain, no discharge, no urinary frequency, no urinary hesitancy, no nocturia Rectal: no pain Musculoskeletal: frequent falls, no neck stiffness, no neck pain, no shooting arm pain, no arm numbness/tingling, no low back pain, no shooting leg pain, no myalgias Integumentary: no rash, no pruritis, no redness Neurological: tremors, no head injury, no parathesias, no numbness, no tingling, no seizures, no syncope, no ataxia, no headaches, no convulsions, no change in speech, no change in mentation, no confusion Psychiatric: no anxiety, no sleep disturbances, no insomnia, no hypersomnia, no change in appetite, no change in libido, no suicidal ideation, no disorientation, no hallucinations, no confusion Endocrine: no cold intolerance, no heat intolerance, no polyphagia, no polydipsia, no polyuria, no nocturia Hematologic/Lymphatic: no easy bruising, no lymphedema Exam - Constitutional Vitals: Temp Pulse Resp BP Pulse Ox 98.6 F 106 H 18 140/99 97 06/23/20 03:10 06/23/20 03:10 06/23/20 03:10 06/23/20 03:10 06/23/20 03:10 General appearance: Present: mild distress - EENT Eyes: Present: PERRL. Absent: scleral icterus ENT: hearing intact - Neck Neck: Present: supple, normal ROM. Absent: rigidity, enlarged thyroid, carotid bruits - Respiratory Respiratory effort: normal - Cardiovascular Rhythm: regular Heart Sounds: Present: S1 & S2. Absent: gallop, systolic murmur, diastolic murmur, rub, click - Extremities Extremities: no ischemia, No edema Peripheral Pulses: within normal limits - Abdominal General gastrointestinal: Present: soft, non-tender, non-distended. Absent: tender, distended, rigid Male genitourinary: Present: deferred - Rectal Rectal Exam: deferred - Integumentary Integumentary: Present: clear, warm, dry. Absent: erythema, jaundice - Musculoskeletal Musculoskeletal: strength equal bilaterally - Psychiatric Psychiatric: appropriate mood/affect HEART Score - HEART Score Age: < 45 Risk factors: 1-2 risk factors Troponin: < normal limit - Critical Actions Critical Actions: 0-3 pts:0.9-1.7%risk of adverse cardiac event.Candidate for discharge Results - Labs CBC & Chem 7: 06/22/20 21:40 06/22/20 21:40 Labs: Laboratory Last Values WBC 6.0 K/mm3 (4.5-11.0) 06/22/20 21:40 RBC 3.17 M/mm3 (3.65-5.03) L 06/22/20 21:40 Hgb 12.7 gm/dl (11.8-15.2) 06/22/20 21:40 Hct 34.3 % (35.5-45.6) L 06/22/20 21:40 MCV 108 fl (84-94) H 06/22/20 21:40 MCH 40 pg (28-32) H 06/22/20 21:40 MCHC 37 % (32-34) H 06/22/20 21:40 RDW 18.2 % (13.2-15.2) H 06/22/20 21:40 Plt Count 395 K/mm3 (140-440) 06/22/20 21:40 [place] % (Auto) Bevel Polisher 06/22/20 21:40 Add Manual Diff Complete 06/22/20 21:40 Total Counted 100 06/22/20 21:40 Seg Neuts % (Manual) 53.0 % (40.0-70.0) 06/22/20 21:40 Band Neutrophils % 0 % 06/22/20 21:40 Lymphocytes % (Manual) 25.0 % (13.4-35.0) 06/22/20 21:40 Reactive Lymphs % (Man) 0 % 06/22/20 21:40 Monocytes % (Manual) 20.0 % (0.0-7.3) H 06/22/20 21:40 Eosinophils % (Manual) 1.0 % (0.0-4.3) 06/22/20 21:40 Basophils % (Manual) 1.0 % (0.0-1.8) 06/22/20 21:40 Metamyelocytes % 0 % 06/22/20 21:40 Myelocytes % 0 % 06/22/20 21:40 Promyelocytes % 0 % 06/22/20 21:40 Blast Cells % 0 % 06/22/20 21:40 Nucleated RBC % Not Reportable 06/22/20 21:40 Seg Neutrophils # Man 3.2 K/mm3 (1.8-7.7) 06/22/20 21:40 Band Neutrophils # 0.0 K/mm3 06/22/20 21:40 Lymphocytes # (Manual) 1.5 K/mm3 (1.2-5.4) 06/22/20 21:40 Abs React Lymphs (Man) 0.0 K/mm3 06/22/20 21:40 Monocytes # (Manual) 1.2 K/mm3 (0.0-0.8) H 06/22/20 21:40 Eosinophils # (Manual) 0.1 K/mm3 (0.0-0.4) 06/22/20 21:40 Basophils # (Manual) 0.1 K/mm3 (0.0-0.1) 06/22/20 21:40 Metamyelocytes # 0.0 K/mm3 06/22/20 21:40 Myelocytes # 0.0 K/mm3 06/22/20 21:40 Promyelocytes # 0.0 K/mm3 06/22/20 21:40 Blast Cells # 0.0 K/mm3 06/22/20 21:40 WBC Morphology Not Reportable 06/22/20 21:40 Hypersegmented Neuts Not Reportable 06/22/20 21:40 Hyposegmented Neuts Not Reportable 06/22/20 21:40 Hypogranular Neuts Not Reportable 06/22/20 21:40 Smudge Cells Not Reportable 06/22/20 21:40 Toxic Granulation Not Reportable 06/22/20 21:40 Toxic Vacuolation Not Reportable 06/22/20 21:40 Dohle Bodies Not Reportable 06/22/20 21:40 Pelger-Huet Anomaly Not Reportable 06/22/20 21:40 Cheyanne Rods Not Reportable 06/22/20 21:40 Platelet Estimate Not Reportable 06/22/20 21:40 Clumped Platelets Not Reportable 06/22/20 21:40 Plt Clumps, EDTA Not Reportable 06/22/20 21:40 Large Platelets Not Reportable 06/22/20 21:40 Giant Platelets Not Reportable 06/22/20 21:40 Platelet Satelliting Not Reportable 06/22/20 21:40 Plt Morphology Comment Not Reportable 06/22/20 21:40 RBC Morphology Not Reportable 06/22/20 21:40 Dimorphic RBCs Not Reportable 06/22/20 21:40 Polychromasia Not Reportable 06/22/20 21:40 Hypochromasia Not Reportable 06/22/20 21:40 Poikilocytosis Not Reportable 06/22/20 21:40 Anisocytosis Rare 06/22/20 21:40 Microcytosis Rare 06/22/20 21:40 Macrocytosis Not Reportable 06/22/20 21:40 Spherocytes Not Reportable 06/22/20 21:40 Pappenheimer Bodies Not Reportable 06/22/20 21:40 Sickle Cells Not Reportable 06/22/20 21:40 Target Cells Not Reportable 06/22/20 21:40 Tear Drop Cells Not Reportable 06/22/20 21:40 Ovalocytes Not Reportable 06/22/20 21:40 Helmet Cells Not Reportable 06/22/20 21:40 Solano-Montier Bodies Not Reportable 06/22/20 21:40 [place] Rings Not Reportable 06/22/20 21:40 Molly Cells Not Reportable 06/22/20 21:40 Bite Cells Not Reportable 06/22/20 21:40 Crenated Cell Not Reportable 06/22/20 21:40 Elliptocytes Not Reportable 06/22/20 21:40 Acanthocytes (Spur) Not Reportable 06/22/20 21:40 Rouleaux Not Reportable 06/22/20 21:40 Hemoglobin C Crystals Not Reportable 06/22/20 21:40 Schistocytes Not Reportable 06/22/20 21:40 Malaria parasites Not Reportable 06/22/20 21:40 Saad Bodies Not Reportable 06/22/20 21:40 Hem Pathologist Commnt No 06/22/20 21:40 Sodium 142 mmol/L (137-145) 06/22/20 21:40 Potassium 3.1 mmol/L (3.6-5.0) L 06/22/20 21:40 Chloride 98.5 mmol/L (98-107) 06/22/20 21:40 Carbon Dioxide 23 mmol/L (22-30) 06/22/20 21:40 Anion Gap 24 mmol/L 06/22/20 21:40 BUN 7 mg/dL (9-20) L 06/22/20 21:40 Creatinine 0.7 mg/dL (0.8-1.3) L 06/22/20 21:40 Estimated GFR > 60 ml/min 06/22/20 21:40 BUN/Creatinine Ratio 10 % 06/22/20 21:40 Glucose 95 mg/dL (75-100) 06/22/20 21:40 Calcium 8.7 mg/dL (8.4-10.2) 06/22/20 21:40 Total Bilirubin 0.60 mg/dL (0.1-1.2) 06/22/20 21:40 Direct Bilirubin 0.3 mg/dL (0-0.2) H 06/22/20 21:40 Indirect Bilirubin 0.3 mg/dL 06/22/20 21:40 AST 185 units/L (5-40) H 06/22/20 21:40 ALT 139 units/L (7-56) H 06/22/20 21:40 Alkaline Phosphatase 99 units/L (35-129) 06/22/20 21:40 Total Creatine Kinase 1077 units/L (55-170) H 06/22/20 21:40 Total Protein 7.5 g/dL (6.3-8.2) 06/22/20 21:40 Albumin 4.1 g/dL (3.9-5) 06/22/20 21:40 Albumin/Globulin Ratio 1.2 % 06/22/20 21:40 Urine Color Yellow (Yellow) 06/23/20 00:58 Urine Turbidity Clear (Clear) 06/23/20 00:58 Urine pH 6.0 (5.0-7.0) 06/23/20 00:58 Ur Specific [place] 1.011 (1.003-1.030) 06/23/20 00:58 Urine Protein <15 mg/dl mg/dL (Negative) 06/23/20 00:58 Urine Glucose (UA) Neg mg/dL (Negative) 06/23/20 00:58 Urine Ketones Neg mg/dL (Negative) 06/23/20 00:58 Urine Blood Neg (Negative) 06/23/20 00:58 Urine Nitrite Neg (Negative) 06/23/20 00:58 Urine Bilirubin Neg (Negative) 06/23/20 00:58 Urine Urobilinogen < 2.0 mg/dL (<2.0) 06/23/20 00:58 Ur Leukocyte Esterase Neg (Negative) 06/23/20 00:58 Urine WBC (Auto) 2.0 /HPF (0.0-6.0) 06/23/20 00:58 Urine RBC (Auto) 3.0 /HPF (0.0-6.0) 06/23/20 00:58 Hyaline Casts 10 /LPF 06/23/20 00:58 Urine Mucus Few /HPF 06/23/20 00:58 Salicylates < 0.3 mg/dL (2.8-20.0) L 06/22/20 21:40 Urine Opiates Screen Presumptive negative 06/23/20 00:58 Urine Methadone Screen Presumptive negative 06/23/20 00:58 Acetaminophen 5.0 ug/mL (10.0-30.0) L 06/22/20 21:40 Ur Barbiturates Screen Presumptive negative 06/23/20 00:58 Ur Phencyclidine Scrn Presumptive negative 06/23/20 00:58 Ur Amphetamines Screen Presumptive negative 06/23/20 00:58 U Benzodiazepines Scrn Presumptive negative 06/23/20 00:58 Urine Cocaine Screen Presumptive negative 06/23/20 00:58 U Marijuana (THC) Screen Presumptive negative 06/23/20 00:58 Drugs of Abuse Note Disclamer 06/23/20 00:58 Plasma/Serum Alcohol 0.49 % (0-0.07) H 06/22/20 21:40 Assessment and Plan - Patient Problems (1) Rhabdomyolysis Current Visit: Yes Status: Acute Plan to address problem: 1.Serial Creatinine phosphokinase levels 2. I.V Bicarbonate solution drip (2) Hypokalemia Current Visit: Yes Status: Acute Plan to address problem: PO and I.V Potassium replacement (3) Alcohol abuse Current Visit: Yes Status: Acute Plan to address problem: 1. I.V Normal Saline with Thiamine, folic Acid, multivitamin and magnesium sulfate 2. [place] protocol 3. Counseling for Alcohol Abuse , Alcohol Detox (4) Recurrent falls Current Visit: Yes Status: Acute Plan to address problem: physical therapy
[2020-06-23 08:13] LABS: Creatine Kinase MB 1.8 ng/mL (0.0-4.0)
[2020-06-23] MEDS ORDERED: HALOPERIDOL LACTATE 5 MG/1 ML INJ IV PRN (08:28)
[2020-06-23] MEDS: LORazepam 2 MG/ML VIAL IV PRN ×3 (09:20→16:35)
[2020-06-23] MEDS ORDERED: IBUPROFEN 200 MG TAB PO PRN (11:10)
[2020-06-23] MEDS: HYDROcodone/ACETAMINOPHEN 5-325 MG TAB PO PRN ×2 (11:27→20:52)
[2020-06-23 14:33] LABS: Creatine Kinase MB 1.5 ng/mL (0.0-4.0)
--- NOTE | 2020-06-23 14:48 | Event Note ---
Date: 06/23/20 patient seen and examined Patient is a 40 year old male presenting to Emergency room because of frequent falls and pain and weakness of both lower limbs. His serum alcohol level was positive cont [facility] protocol monitor clinically
[2020-06-23] MEDS: SODIUM CHLORIDE 0.45% 1000 ML 1,000 ML IV SCH (16:35)
[2020-06-23] MEDS ORDERED: THIAMINE 100 MG, FOLIC ACID 1 MG, MULTIPLE VITAMIN INJ, ADULT 10 ML in SODIUM CHLORIDE ... IV ONE (22:00)
[2020-06-24] MEDS: LORazepam 2 MG/ML VIAL IV PRN ×2 (01:13→10:09)
[2020-06-24] MEDS: SODIUM CHLORIDE 0.45% 1000 ML 1,000 ML IV SCH (06:15)
[2020-06-24 07:25] LABS: Blood Urea Nitrogen 5 mg/dL (9-20); Calcium 7.8 mg/dL (8.4-10.2); Hemolysis Index 8
[2020-06-24 07:40] LABS: BUN/Creatinine Ratio 10
[2020-06-24] MEDS ORDERED: POTASSIUM CHLORIDE ER 20 MEQ TAB PO NR ×2 (08:24→11:00)
[2020-06-24] MEDS: HEPARIN 5,000 UNIT/1 ML VIAL SUB-Q SCH (09:55)
[2020-06-24] MEDS ORDERED: amLODIPine 10 MG TAB PO SCH (12:00)
[2020-06-24 12:54] VITALS: BP 157/98
--- NOTE | 2020-06-24 14:34 | Discharge Summary ---
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 Hospitalization Condition: Fair Disposition: DC-01 TO HOME OR SELFCARE Time spent for discharge: 34 minutes Core Measure Documentation - Palliative Care Palliative Care/ Comfort Measures: Not Applicable - Core Measures Any of the following diagnoses?: none Exam - Constitutional Vitals: Temp Pulse Resp BP Pulse Ox 98.0 F 96 H 20 157/98 98 06/24/20 11:26 06/24/20 11:26 06/24/20 11:26 06/24/20 11:26 06/24/20 11:26 Plan Activity: advance as tolerated, fall precautions Weight Bearing Status: Weight Bear as Tolerated Diet: low fat, low salt Special Instructions: other (alcohol cessation) Follow up with: PRIMARY CARE, [Primary Care Provider] - 3-5 Days Prescriptions: amLODIPine 10 mg PO QDAY #30 tablet Folic Acid [Folvite] 1 mg PO QDAY #30 tablet chlordiazePOXIDE [Librium] 25 mg PO Q8H PRN #10 capsule PRN Reason: Anxiety Thiamine [Vitamin B-1] 100 mg PO QDAY #30 tablet
[2020-06-24] MEDS ORDERED: chlordiazePOXIDE 25 MG CAP PO PRN (15:00)
[2020-06-24] MEDS ORDERED: FOLIC ACID 1 MG TAB PO SCH (15:00)
[2020-06-24] MEDS ORDERED: THIAMINE 100 MG TAB PO SCH (15:00)
[2020-06-24] MEDS ORDERED: POTASSIUM CHLORIDE ER 20 MEQ TAB PO ONE (18:20)
[2020-06-24] MEDS ORDERED: LISINOPRIL 10 MG TAB PO SCH (18:30)
== END 2020-06-24 18:00 | disposition home or self-care (01) | DRG 558 ==
LOC: ED 20:30 → 3A 06-23 01:46 → OBSVTOIN 06-23 10:00 → UNDODISIN 06-24 18:03
PROVIDERS: ADMIT Internal Medicine; ATTEND Internal Medicine
DX: M62.82 Rhabdomyolysis (principal); R29.6 Repeated falls; I10 Essential (primary) hypertension; F32.9 Major depressive disorder, single episode, unspecified; E87.6 Hypokalemia; F10.129 Alcohol abuse with intoxication, unspecified; Y90.9 Presence of alcohol in blood, level not specified
CPT/HCPCS: 36415; 70450; 72131; 72170; 80048; 80076; 80307; 80320; 81001; 82550; 82553; 82962; 85007; 85025; 96365; 96372; 96375; G0378; G0480; J1644; J2060; J3411; J7030; J7070